=== PATIENT | female | born 1995 | race Caucasian/White ===

== ENCOUNTER 2017-04-22 22:44 | Emergency (ER) | payer OTHER ==
--- NOTE | 2017-04-22 22:53 | EDPHY ---
H & P Stated Complaint: ETOH intox Time Seen by Provider: 04/22/17 22:47 HPI/ROS: Chief Complaint: Alcohol intoxication, vomiting HPI: 21-year-old female who was found at a friend's apartment intoxicated. Patient passed out after drinking multiple shots. Is unable to ambulate on their own. Patient brought in by EMS for further evaluation. No obvious signs of trauma per EMS. Remainder of history is unobtainable secondary to the patient's intoxication. ROS: Unobtainable secondary to the patient's intoxication PMH: Unknown Medications: Unknown Allergies: Unknown Social History: Positive for alcohol Family History: non-contributory Physical Exam: Gen: Somnolent, responds to painful stimuli, maintaining airway, smells of alcohol HEENT: Atraumatic Nose: no epistaxis or deformity Eyes: PERRLA, EOMI Mouth: Moist mucosa Neck: Supple, no step-offs or deformity Chest: Atraumatic, lungs clear to auscultation Heart: S1, S2 normal, no murmur Abd: Soft, non-tender, no guarding Back: Atraumatic Ext: no edema, atraumatic Skin: no rash Neuro: Sensation grossly intact, Strength 5/5 in bilateral upper and lower extremities - Personal History LMP (Females 10-55): Unknown Current Tetanus/Diphtheria Vaccine: Yes - Medical/Surgical History Other PMH: unobtainable - Social History Smoking Status: Unknown if ever smoked Constitutional: Initial Vital Signs Temperature (C) 36.4 C 04/22/17 22:48 Heart Rate 71 04/22/17 22:48 Respiratory Rate 18 04/22/17 22:48 Blood Pressure 103/80 04/22/17 22:48 O2 Sat (%) 96 04/22/17 22:48 O2 Delivery Mode Room Air Allergies/Adverse Reactions: Unable to Assess Allergy (Unverified 04/22/17 22:50) Home Medications: Medication Instructions Recorded Unobtainable 04/22/17 Medical Decision Making ED Course/Re-evaluation: Patient is now awake and appropriate. Ambulating unassisted to the bathroom. No current complaints. Medically cleared for discharge with a sober ride. Departure - Departure Disposition: Home, Routine, Self-Care Clinical Impression: Alcoholic intoxication Condition: Good Instructions: Alcohol Intoxication (ED) Referrals: Arabella RYAN [Clinic] - As per Instructions
[2017-04-23 06:12] VITALS: BP 108/75; PULSE 68; RESP 16; TEMP 97.9; O2SAT 98
== END 2017-04-23 06:13 | disposition home or self-care (01) ==
LOC: EDBD 22:44
DX: F10.129 Alcohol abuse with intoxication, unspecified (principal)